=== PATIENT | male | born 1970 | race Caucasian/White ===

== ENCOUNTER 2023-09-21 16:09 | Outpatient (AMB) | payer BC, SELFPAY ==
--- NOTE | 2023-09-21 16:05 | HO.NEPHOV_ITS ---
Vital Signs 09/21/23 16:12 Height 5 ft 7 in Weight 169 lb BMI 26.5 BP 116/64 Blood Pressure Location Lt brachial Position Sitting Pulse 61 Pulse Source Pulse Oximeter Pulse Oximetry (%) 98 Oxygen Delivery Method Room Air Intake Visit Reasons: Continuing care -HTN/ Mailbox full Pillowcase Folder Required: No Accompanied by: Self / Same As Patient Allergies No Known Allergies Allergy (Verified 09/21/23 16:14) HPI Comments Details: Adam Isabel is a pleasant 53-year-old man with a history of solitary right kidney. In 2021 he was admitted to [facility] with acute kidney injury. 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 Underwent angiogram which did not reveal any renal artery stenosis or fibromuscular dysplasia. During hospitalization serum creatinine peaked at 1.7. Over the course of time renal function improved in the recent creatinine was 1.12 mg/dL. His blood pressure was elevated in this was well controlled with nifedipine. Overall he has doing well Gets occasional right flank plain that lasts few seconds. Not persistent. NO hematuria PFSH Medical History (Updated 09/21/23 @ 16:30 by Tye Johns MD) FH: CABG (coronary artery bypass surgery) Surgical History (Updated 09/21/23 @ 16:15 by NICOLAS Smith) History of total right hip arthroplasty (~2022) History of total hip arthroplasty (~2020) H/O: knee surgery Hx of Achilles tendon repair Family History (Updated 09/20/23 @ 08:51 by NICOLAS Smith) Mother Stroke Diabetes Kidney disease Dialysis patient Father Heart disease Hypertension Social History Patient Tobacco Use Status: Never used Tobacco Review of Systems Const Denies fever(s) and Denies weight loss Card Denies chest pain Resp Denies cough and Denies hemoptysis GI Denies abdominal pain, Denies diarrhea and Denies nausea Musc Denies back pain Neuro Denies focal weakness Physical Exam Const General: comfortable; No acute distress Orientation/consciousness: patient oriented x3 Eyes General: appearance normal, both eyes and all related structures Visual Landers: normal visual landers by confrontation Neck Neck: Yes supple and Yes no JVD Resp Effort & Inspection: normal respiratory effort and respiratory effort not decreased Auscultation: rhonchi Cardio Palpation: no palpable S3 and no palpable S4 Heart sounds: no rubs GI Inspection: Yes normal to inspection Palpation (GI): Soft to palpation Percussion: Yes normal to percussion Auscultation: normal bowel sounds General: Yes no CVA tenderness Back/Spine/Pelvis Back: no CVA tenderness Skin General skin exam: no petechiae and no purpura Neuro General: patient oriented x3 and no focal motor deficits Extrem General: No clubbing and No edema Results Reviewed Results Reviewed: MRA in 2021: 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 Right kidney revealed main artery with early bifurcation. Superior branch of the right renal artery showed diffuse severe stenosis with peripheral curvilinear T1 hypointense signal consistent with thrombosis. The distal aspect of this artery appeared focally occluded. Inferior branch of this main artery was patent with multifocal mild to moderate stenosis and. Contour suggestive of fibromuscular dysplasia. Separate from main renal artery there is an accessory inferior right renal artery which was patent. A large infarct involving the interpolar right kidney with a 5.6 cm region of wedge-shaped non enhancement the larger region of surrounding hypoperfusion was seen upper and lower poles remain well-perfused Nephrology Results: No Data to Display Assessment & Plan Assessment & Plan (1) CKD (chronic kidney disease): Code(s): N18.9 - Chronic kidney disease, unspecified Category: Medical (2) Renal infarct: Code(s): N28.0 - Ischemia and infarction of kidney Category: Medical Plan . Joe has a solitary right kidney with a history of renal infarct. 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 Inferior branch showed stenosis with evidence of fibromuscular dysplasia. There was accessory right renal artery as well. At present the blood pressure is well controlled with current medications. Serum creatinine was 1.24 in 10/28/2022 and currently 1.31. Urinalysis remains benign without any significant proteinuria or hematuria. We will continue to watch renal function and blood pressure closely. If renal function deteriorates or if blood pressure is difficult to control I will arrange for renal angiogram to assess the renal arteries given a history of fibromuscular dysplasia. The meantime encouraged him to increase fluid intake Continue to avoid nephrotoxic agents including NSAIDs. Watch for hematuria and encouraged him to call if he has recurrent flank pains. Repeat lab work ordered for 3 months. I will see him again in the next 6 months. Orders: Orders Basic Metabolic Panel 3 Months N18.9 - Chronic kidney disease, unspecified Coding Level of Care Code Est Pt Level 4 (81788) Diagnoses CKD (chronic kidney disease) N18.9 Renal infarct N28.0
[2023-09-21 16:12] VITALS: BP 116/64; PULSE 61; O2SAT 98; BMI 26.5
== END 2023-09-21 16:30 | disposition home or self-care (01) ==
PROVIDERS: PCP Internal Medicine; Visit Provider Internal Medicine Hypertension Specialist
DX: N18.9 Chronic kidney disease, unspecified (principal); N28.0 Ischemia and infarction of kidney
CPT/HCPCS: 99214

== ENCOUNTER → 2023-09-21 16:09 | Outpatient (BNVA) | payer BC, SELFPAY | PROVIDERS: PCP Internal Medicine; Visit Provider Internal Medicine Hypertension Specialist ==

== ENCOUNTER 2024-03-21 16:17 | Outpatient (AMB) | payer OTHER, SELFPAY ==
[2024-03-21 16:16] VITALS: BP 130/74; PULSE 61; O2SAT 98; BMI 26.9
--- NOTE | 2024-03-21 16:16 | HO.NEPHOV ---
Vital Signs 03/21/24 16:16 Height 5 ft 7 in Weight 172 lb BMI 26.9 BP 130/74 Blood Pressure Location Lt brachial Position Sitting Pulse 61 Pulse Source Pulse Oximeter Pulse Oximetry (%) 98 Oxygen Delivery Method Room Air Intake Visit Reasons: Nov follow up/ Conf [employer] In[employer] Required: No Accompanied by: Self / Same As Patient Allergies No Known Allergies Allergy (Verified 03/21/24 16:20) Medication List - Last Reconciled 03/21/24 by Tye Johns MD apixaban (Eliquis) 5 mg PO BID aspirin 81 mg PO DAILY atorvastatin 80 mg PO DAILY carvedilol 25 mg PO BID cholecalciferol (vitamin D3) 50 mcg PO DAILY nifedipine ER 90 mg PO DAILY HPI Comments Details: Adam Isabel is a pleasant 53-year-old man with a history of solitary right kidney. In 2021 he was admitted to [facility] with acute kidney injury. 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 Underwent angiogram which did not reveal any renal artery stenosis or fibromuscular dysplasia. During hospitalization serum creatinine peaked at 1.7. Over the course of time renal function improved in the recent creatinine was 1.12 mg/dL. His blood pressure was elevated in this was well controlled with nifedipine. Overall he has doing well Gets occasional right flank plain that lasts few seconds. Not persistent. NO hematuria [facility] Medical History (Updated 09/21/23 @ 16:30 by Tye Johns MD) FH: CABG (coronary artery bypass surgery) Surgical History History of total right hip arthroplasty (~2022) History of total hip arthroplasty (~2020) H/O: knee surgery Hx of Achilles tendon repair Family History Mother Stroke Diabetes Kidney disease Dialysis patient Father Heart disease Hypertension Social History Patient Tobacco Use Status: Never used Tobacco Physical Exam Vital Signs: Last Vital Signs Pulse 61 03/21/24 16:16 BP 130/74 03/21/24 16:16 Pulse Ox 98 03/21/24 16:16 Oxygen Delivery Method Room Air 03/21/24 16:16 BMI result Body Mass Index 26.9 Comfortable Neck supple no JVD. Lungs entry equal no rales. Heart S1-S2 heard no gallop or rub. Abdomen soft nontender. Neuro alert awake oriented. No asterixis. Extremities no edema. Results Reviewed Nephrology Results: No Data to Display Assessment & Plan Assessment & Plan (1) CKD (chronic kidney disease): Code(s): N18.9 - Chronic kidney disease, unspecified Category: Medical (2) Renal infarct: Code(s): N28.0 - Ischemia and infarction of kidney Category: Medical Plan . Joe has a solitary right kidney with a history of renal infarct. 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 Inferior branch showed stenosis with evidence of fibromuscular dysplasia. There was accessory right renal artery as well. At present the blood pressure is well controlled with current medications. Serum creatinine was 1.24 in 10/28/2022 and currently 1.31. Urinalysis remains benign without any significant proteinuria or hematuria. We will continue to watch renal function and blood pressure closely. If renal function deteriorates or if blood pressure is difficult to control I will arrange for renal angiogram to assess the renal arteries given a history of fibromuscular dysplasia. The meantime encouraged him to increase fluid intake Continue to avoid nephrotoxic agents including NSAIDs. Watch for hematuria and encouraged him to call if he has recurrent flank pains. Repeat lab work ordered for 3 months. I will see him again in the next 6 months. Orders: Orders Basic Metabolic Panel 1 Year N18.9 - Chronic kidney disease, unspecified, N28.0 - Ischemia and infarction of kidney Creatinine Urine 1 Year N18.9 - Chronic kidney disease, unspecified, N28.0 - Ischemia and infarction of kidney Total Protein Urine Random 1 Year N18.9 - Chronic kidney disease, unspecified, N28.0 - Ischemia and infarction of kidney UA and rflx microscopic 1 Year N18.9 - Chronic kidney disease, unspecified, N28.0 - Ischemia and infarction of kidney Medications: Refilled nifedipine ER 90 mg PO DAILY 90 tabs 2RF Coding Level of Care Code Est Pt Level 4 (79483) Diagnoses CKD (chronic kidney disease) N18.9 Renal infarct N28.0
--- OUTSIDE RECORDS SUMMARY | 2024-03-22 03:10 | XMS_ITS ---
Author Name [facility] Organization Unknown History of Medication Use Medication Directions Dispensed Refills Start Date End Date Stat us EliquisTake (oral)[id number] frequency recordedoralNo set duration recordedNo set duration amount [id number] 03/22/2023 active Vitamin [id number] jeremías e recordedNo form recordedNo frequency recordedNo route recordedNo set duration recordedNo set duration amount recordedactiveNo dosage strength recordedNo dosage strength units of measure recorded 03/22/2023 active carvedilolTake (oral)[id number] frequency recordedoralNo set duration recordedNo set duration amount qhyzrkjcdqfvyj42ij 03/22/2023 active atorvastatinTake (oral)[id number] frequency recordedoralNo set duration recordedNo set duration amount [id number] 03/22/2023 active dexamethasoneTake 2 tablet (Oral) 1 time per day for 1 [id number] time per [id number] 03/22/2023 gianna pended BystolicTakeNo date recordedNo form recordedNo frequency recordedNo route recordedNo set duration recordedNo set duration amount recordedsuspendedNo dosage strength recordedNo dosage strength units of measure recorded 03/22/2023 suspended prednisoneTake 1 tab let (oral) 1 time per day for 4 [id number] time per [id number] 03/22/2023 a ctive nifedipineTake (oral)[id number] extended release 24hrNo frequency recordedoralNo set duration recordedNo set duration amount mncljnnnhnszpx94iz 03/22/2023 active methylprednisolone s odium succNo directions recordedNo date recordedrecon solnNo frequency recordedNo route recordedNo set duration recordedNo set duration amount eshwjptqkzlewn670vt 03/22/2023 a ctive atorvastatinTakeNo d ate recordedNo form recordedNo frequency recordedNo route recordedNo set duration recordedNo set duration amount recordedactiveNo dosage strength recordedNo dosage strength units of measure recorded 03/22/2023 active cyclobenzaprineTake 1 tablet (Oral) 3 times per day for 7 days May Cause [id number] times per [id number] 03/22/2023 hand spended Co Q-10TakeNo date recordedNo form recordedNo frequency recordedNo route recordedNo set duration recordedNo set duration amount recordedactiveNo dosage strength recordedNo dosage strength units of measure recorded 03/22/2023 active Vitamin B3IdlkUi jeremías e recordedNo form recordedNo frequency recordedNo route recordedNo set duration recordedNo set duration amount recordednullifiedNo dosage strength recordedNo dosage strength units of measure recorded 03/22/2023 nullified aspirinTake (oral)[id number],delay ed release (DR/EC)No frequency recordedoralNo set duration recordedNo set duration amount qtagaktfrsvqow30eb 03/22/2023 active Problems Problem Status Onset Date Problem Type Date of Resoluti on Source Other specified disorders of kidney and ureter (N28.89) active ProblemAct [facility] Hyperlipidemia, unspecified active ProblemAct [facility] Angioneurotic edema, initial encounter active 2023-03-18 ProblemAct [facility] Essential (primary) hypertension active ProblemAct [facility]
== END 2024-03-21 16:38 | disposition home or self-care (01) ==
PROVIDERS: PCP Internal Medicine; Visit Provider Internal Medicine Hypertension Specialist
DX: N18.9 Chronic kidney disease, unspecified (principal); N28.0 Ischemia and infarction of kidney; Z90.5 Acquired absence of kidney
CPT/HCPCS: 99214